=== PATIENT | male | born 1960 | race Caucasian/White ===

== ENCOUNTER 2019-09-15 23:16 | Observation (INO) ==
[2019-09-15] MEDS ORDERED: predniSONE 20 MG TABLET PO STA (23:32)
[2019-09-15] MEDS ORDERED: Ipratropium/Albuterol Neb 3 ML IH STA (23:32)
[2019-09-15] MEDS ORDERED: Albuterol 2.5 MG/3 ML NEBULIZER IH STA (23:32)
[2019-09-16] MEDS ORDERED: Albuterol 2.5 MG/3 ML NEBULIZER IH STA (00:27)
[2019-09-16] MEDS ORDERED: Doxycycline 100 MG CAPSULE PO ONE (00:28)
[2019-09-16 01:12] LABS: Hematocrit 46.6 % (37.5-50.1); Hemoglobin 15.6 g/dL (12.9-16.9); Mean Corpuscular HGB Conc 33.5 g/dL (31.6-35.5); Mean Corpuscular Hemoglobin 31.4 pg (28.0-33.3); Mean Corpuscular Volume 93.8 fL (83.0-100.0); Mean Platelet Volume 9.2 fL (9.4-12.4); Platelet Count 247 K/mcL (140-400); Red Blood Count 4.97 M/mcL (4.19-5.50); Red Cell Distribution Width 13.2 % (11.5-14.5); White Blood Count 7.5 K/mcL (4.3-11.1)
[2019-09-16 01:33] LABS: BUN/Creatinine Ratio 9 (6-26); Blood Urea Nitrogen 8 mg/dL (8-23); Calcium 9.4 mg/dL (8.6-10.3); Carbon Dioxide 34 mEq/L (23-29); Chloride 101 mEq/L (98-107); Glucose 96 mg/dL (70-105); Osmolality,Calculated 290 (280-300); Potassium 3.7 mEq/L (3.5-5.1); Sodium 141 mEq/L (136-145); eGFR For African Americans > 60 (> 60); eGFR For Non-African Americans > 60 (> 60)
[2019-09-16] MEDS ORDERED: Naloxone 0.4 MG/ML INJ IVP PRN (05:37)
[2019-09-16] MEDS ORDERED: Albuterol 2.5 MG/3 ML NEBULIZER IH PRN (06:28)
[2019-09-16] MEDS: Ipratropium/Albuterol Neb 3 ML IH SCH ×4 (07:57→23:12)
[2019-09-16] MEDS: Azithromycin 500 MG in 0.9 % Sodium Chloride 250 ML IVPB SCH (08:57)
[2019-09-16] MEDS: predniSONE 20 MG TABLET PO SCH (08:57)
[2019-09-17] MEDS: Ipratropium/Albuterol Neb 3 ML IH SCH (04:36)
[2019-09-17] MEDS: Azithromycin 500 MG in 0.9 % Sodium Chloride 250 ML IVPB SCH (06:08)
[2019-09-17 07:15] VITALS: BP 145/95
[2019-09-17] MEDS: predniSONE 20 MG TABLET PO SCH (08:32)
[2019-09-17] MEDS ORDERED: Tiotropium 18 MCG inhalation IH SCH (10:00)
== END 2019-09-17 11:04 | disposition home or self-care (01) ==
LOC: 3BNU 23:16 → EMEROOARM 23:16 → 3BNU 09-16 05:07
PROVIDERS: ADMIT Internal Medicine; ATTEND Internal Medicine

== ENCOUNTER 2021-08-26 11:11 | Inpatient (IN) ==
[2021-08-26] MEDS ORDERED: 0.9 % Sodium Chloride 500 ML IVC ONE (11:51)
[2021-08-26] MEDS ORDERED: Ondansetron 4 MG/2 ML VIAL IVP ONE (11:51)
[2021-08-26 12:48] LABS: Basophils % 0.5 %; Eosinophils # 0.1 K/mcL (0.0-0.6); Eosinophils % 1.2 %; Hematocrit 39.5 % (37.5-50.1); Hemoglobin 13.3 g/dL (12.9-16.9); Lymphocytes % 24.7 %; Mean Corpuscular HGB Conc 33.7 g/dL (31.6-35.5); Mean Corpuscular Volume 95.2 fL (83.0-100.0); Mean Platelet Volume 9.3 fL (9.4-12.4); Monocytes # 0.4 K/mcL (0.0-1.3); Monocytes % 9.8 %; Neutrophils # 2.6 K/mcL (1.6-8.9); Platelet Count 195 K/mcL (140-400); Red Blood Count 4.15 M/mcL (4.19-5.50); Segmented Neutrophils % 62.8 %; White Blood Count 4.2 K/mcL (4.3-11.1)
[2021-08-26 12:52] LABS: Bacteria,Urine Few per hpf (None-Few); Bilirubin,Urine Negative (Negative); Blood,Urine Negative (Negative); Clarity,Urine Clear (Clear); Color,Urine Yellow (Yellow); Glucose,Urine (UA) Normal (Normal); Ketones,Urine 20 mg/dL (Negative); Leukocyte Esterase,Urine Negative (Negative); Nitrite,Urine Negative (Negative); Protein,Urine 30 mg/dL (Neg-Trace); RBC,Urine 0-3 per hpf (0-3); Specific Gravity,Urine 1.019 (1.010-1.025); Urobilinogen,Urine Normal (Normal)
[2021-08-26 13:15] LABS: Influenza A PCR Negative (Negative); Influenza B PCR Negative (Negative); Resp. Syncytial Virus PCR Negative (Negative)
[2021-08-26 13:16] LABS: Alanine Aminotransferase 57 Units/L (7-52); Albumin 3.8 g/dL (3.5-5.7); Albumin/Globulin Ratio 1.5 (1.1-2.2); Alkaline Phosphatase 44 Units/L (34-104); Aspartate Amino Transferase 51 Units/L (13-39); BUN/Creatinine Ratio 23 (6-26); Bilirubin,Direct 0.3 mg/dL (0.0-0.2); Bilirubin,Indirect 0.4 mg/dL (0.0-1.0); Bilirubin,Total 0.7 mg/dL (0.3-1.0); Blood Urea Nitrogen 25 mg/dL (8-23); Carbon Dioxide 28 mEq/L (23-29); Chloride 105 mEq/L (98-107); Globulin 2.5 g/dL (2.4-3.5); Glucose 95 mg/dL (70-105); Lipase 43 Units/L (11-82); Osmolality,Calculated 292 (280-300); Potassium 3.1 mEq/L (3.5-5.1); Sodium 139 mEq/L (136-145); Total Protein 6.3 g/dL (6.4-8.9); Troponin I < 0.03 ng/mL (< 0.04); eGFR For African Americans > 60 (> 60); eGFR For Non-African Americans > 60 (> 60)
[2021-08-26 13:16] LABS: SARS-CoV-2 by PCR (In House) Positive (Negative)
[2021-08-26] MEDS ORDERED: Potassium Chloride Elixir 20 MEQ/15 ML UDC PO ONE (13:42)
[2021-08-26] MEDS ORDERED: Isovue-370 500 ML BOTTLE IVP ONE (13:43)
[2021-08-26] MEDS ORDERED: Ipratropium/Albuterol Neb 3 ML IH ONE (16:13)
[2021-08-26] MEDS ORDERED: methylPREDNISolone 125 MG/2 ML VIAL IVP ONE (16:13)
[2021-08-26] MEDS ORDERED: Acetaminophen 325 MG TABLET PO PRN (16:53)
[2021-08-26] MEDS ORDERED: Ondansetron 4 MG/2 ML VIAL IVP PRN (16:53)
[2021-08-26] MEDS ORDERED: Naloxone 0.4 MG/ML INJ IVP PRN (16:53)
[2021-08-26] MEDS ORDERED: Melatonin 3 MG TABLET PO PRN (16:53)
[2021-08-26] MEDS ORDERED: MOM Conc 10 ML UD.LIQ PO PRN (16:53)
[2021-08-26 16:55] LABS: C-Reactive Protein 21 mg/L (Less than 10)
[2021-08-26 17:25] LABS: Procalcitonin 0.07 ng/mL (0.00-0.15)
[2021-08-26] MEDS ORDERED: GuaiFENesin Liq 200 MG/10 ML UDC PO PRN (18:05)
[2021-08-26 18:10] LABS: Magnesium 2.1 mg/dL (1.6-2.6)
[2021-08-26 18:37] LABS: Hepatitis B Surface Antigen Nonreactive (Nonreactive)
[2021-08-26] MEDS ORDERED: Saline Nasal Spray 44 ML BOTTLE NS PRN (18:37)
[2021-08-26 18:44] LABS: ABG Base Excess 2 mEq/L (-2 to 3); ABG HCO3 29 mEq/L (21-27); ABG Oxygen Saturation 87 % (95-98); ABG PCO2 50 mmHg (35-45); ABG PH 7.37 pH Units (7.32-7.45); ABG PO2 56 mmHg (85-104); ABG TCO2 30 mEq/L (20-26)
[2021-08-26 18:57] LABS: Prothrombin Time 11.4 Seconds (9.4-12.1)
[2021-08-26 19:00] LABS: Activated Partial Thrombo Time 31.5 Seconds (26.0-36.0)
[2021-08-26] MEDS ORDERED: Remdesivir 200 MG in 0.9 % Sodium Chloride 100 ML IVPB ONE (19:00)
[2021-08-26 19:06] LABS: Hepatitis B Core IgM Nonreactive (Nonreactive); Hepatitis C Virus Antibody Nonreactive (Nonreactive)
[2021-08-26 19:08] LABS: Hepatitis A Antibody IgM Nonreactive (Nonreactive)
[2021-08-26] MEDS: Ipratropium 1 PUFF INHALER IH SCH ×2 (20:11→23:13)
[2021-08-27 01:43] LABS: Basophils % 0.3 %; Eosinophils % 0.6 %; Hematocrit 39.2 % (37.5-50.1); Hemoglobin 13.3 g/dL (12.9-16.9); Immature Granulocytes % 0.6 % (0-4); Lymphocytes # 0.6 K/mcL (0.6-4.6); Lymphocytes % 17.1 %; Mean Corpuscular HGB Conc 33.9 g/dL (31.6-35.5); Mean Corpuscular Hemoglobin 32.4 pg (28.0-33.3); Mean Corpuscular Volume 95.6 fL (83.0-100.0); Mean Platelet Volume 9.2 fL (9.4-12.4); Monocytes # 0.1 K/mcL (0.0-1.3); Monocytes % 2.8 %; Neutrophils # 2.9 K/mcL (1.6-8.9); Platelet Count 212 K/mcL (140-400); Segmented Neutrophils % 78.6 %; White Blood Count 3.6 K/mcL (4.3-11.1)
[2021-08-27 02:00] LABS: BUN/Creatinine Ratio 24 (6-26); Blood Urea Nitrogen 24 mg/dL (8-23); Carbon Dioxide 26 mEq/L (23-29); Chloride 108 mEq/L (98-107); Glucose 138 mg/dL (70-105); Osmolality,Calculated 290 (280-300); Potassium 3.7 mEq/L (3.5-5.1); Sodium 137 mEq/L (136-145); eGFR For African Americans > 60 (> 60); eGFR For Non-African Americans > 60 (> 60)
[2021-08-27 02:01] LABS: Albumin 3.8 g/dL (3.5-5.7); Albumin/Globulin Ratio 1.6 (1.1-2.2); Bilirubin,Direct 0.2 mg/dL (0.0-0.2); Bilirubin,Indirect 0.3 mg/dL (0.0-1.0); Bilirubin,Total 0.5 mg/dL (0.3-1.0); Globulin 2.4 g/dL (2.4-3.5); Total Protein 6.2 g/dL (6.4-8.9)
[2021-08-27] MEDS: Ipratropium 1 PUFF INHALER IH SCH ×6 (04:00→23:35)
[2021-08-27] MEDS: *HR* Enoxaparin 40 MG/0.4 ML SYRINGE SQ SCH (05:40)
[2021-08-27] MEDS ORDERED: Furosemide 20 MG TABLET PO SCH (08:00)
[2021-08-27] MEDS: Furosemide 20 MG TABLET PO SCH (09:00)
[2021-08-27] MEDS ORDERED: Saline Nasal Spray 44 ML BOTTLE NS PRN (17:20)
[2021-08-27] MEDS ORDERED: Remdesivir 100 MG in 0.9 % Sodium Chloride 100 ML IVPB SCH (18:00)
[2021-08-28 02:52] LABS: Basophils % 0.3 %; Hematocrit 38.5 % (37.5-50.1); Immature Granulocytes % 1.5 % (0-4); Lymphocytes # 1.1 K/mcL (0.6-4.6); Lymphocytes % 17.3 %; Mean Corpuscular HGB Conc 33.8 g/dL (31.6-35.5); Mean Corpuscular Hemoglobin 31.6 pg (28.0-33.3); Mean Corpuscular Volume 93.4 fL (83.0-100.0); Mean Platelet Volume 9.3 fL (9.4-12.4); Monocytes # 0.6 K/mcL (0.0-1.3); Monocytes % 9.5 %; Neutrophils # 4.7 K/mcL (1.6-8.9); Platelet Count 244 K/mcL (140-400); Red Blood Count 4.12 M/mcL (4.19-5.50); Red Cell Distribution Width 12.8 % (11.5-14.5); Segmented Neutrophils % 71.4 %
[2021-08-28 02:53] LABS: White Blood Count 6.6 K/mcL (4.3-11.1)
[2021-08-28 03:11] LABS: Albumin 3.6 g/dL (3.5-5.7); Albumin/Globulin Ratio 1.6 (1.1-2.2); Bilirubin,Direct 0.2 mg/dL (0.0-0.2); Bilirubin,Indirect 0.3 mg/dL (0.0-1.0); Bilirubin,Total 0.5 mg/dL (0.3-1.0); Globulin 2.2 g/dL (2.4-3.5); Total Protein 5.8 g/dL (6.4-8.9)
[2021-08-28 03:12] LABS: BUN/Creatinine Ratio 28 (6-26); Blood Urea Nitrogen 29 mg/dL (8-23); Calcium 8.1 mg/dL (8.6-10.3); Carbon Dioxide 28 mEq/L (23-29); Chloride 106 mEq/L (98-107); Glucose 158 mg/dL (70-105); Osmolality,Calculated 293 (280-300); Potassium 3.6 mEq/L (3.5-5.1); Sodium 137 mEq/L (136-145); eGFR For African Americans > 60 (> 60); eGFR For Non-African Americans > 60 (> 60)
[2021-08-28] MEDS: Ipratropium 1 PUFF INHALER IH SCH ×4 (03:40→16:00)
[2021-08-28] MEDS: *HR* Enoxaparin 40 MG/0.4 ML SYRINGE SQ SCH (05:36)
[2021-08-28] MEDS: Furosemide 20 MG TABLET PO SCH (08:49)
[2021-08-28 11:44] VITALS: BP 133/87; PULSE 79; TEMP 97.4
[2021-08-28 12:13] VITALS: O2SAT 92
== END 2021-08-28 16:51 | disposition home or self-care (01) | DRG 177 ==
LOC: EMEROOARM 11:11 → 3BNU 11:11 → SUATTDRO 20:59
PROVIDERS: ADMIT Student in an Organized Health Care Education/Training Program; ATTEND Internal Medicine